=== PATIENT | female | born 1985 | race Two or more races ===

== ENCOUNTER 2020-05-29 06:18 | Day surgery (SDC) | payer OTHER ==
[~2020-05-29 06:18] MED LIST: ADDERALL 20 MG20 MG PO; OMEGA 3 1,0001 EACH PO; VITAMIN D3 PO
[2020-05-29] MEDS ORDERED: COLACE100 MG PO (09:34)
[2020-05-29] MEDS ORDERED: PERCOCET 5-3251 EACH PO (09:34)
== END 2020-05-29 17:20 | disposition home or self-care (01) ==
LOC: CIR.AMB 06:18 → EDBD 11:15 → CIR.AMB 17:20
PROVIDERS: ATTEND Surgery
DX: K60.3 Anal fistula (principal); Z20.822 Contact with and (suspected) exposure to COVID-19

== ENCOUNTER 2020-07-07 19:21 | Emergency (ER) | payer OTHER ==
[~2020-07-07] VITALS: Ht 160 cm; Wt 43.1 kg
[~2020-07-07 19:21] MED LIST changes: +COLACE100 MG PO; +PERCOCET 5-3251 EACH PO
== END 2020-07-07 21:59 | disposition home or self-care (01) ==
LOC: ER 19:21
DX: R53.81 Other malaise (principal); R50.9 Fever, unspecified; Z11.52 Encounter for screening for COVID-19

== ENCOUNTER 2020-08-21 06:00 | Day surgery (SDC) | payer OTHER ==
[2020-08-21] MEDS ORDERED: PERCOCET 5-3251 EACH PO (08:37)
[2020-08-21] MEDS ORDERED: COLACE100 MG PO (08:37)
== END 2020-08-21 18:00 | disposition home or self-care (01) ==
LOC: CIR.AMB 06:00
PROVIDERS: ATTEND Surgery
DX: K60.1 Chronic anal fissure (principal); Z20.822 Contact with and (suspected) exposure to COVID-19

== ENCOUNTER 2020-09-28 08:00 | Outpatient (CLI) | payer OTHER | END 2020-09-28 08:30 | disposition home or self-care (01) | LOC: PPH VACUNA 08:00 | DX: Z23 Encounter for immunization (principal) ==

== ENCOUNTER 2020-10-19 08:00 | Outpatient (CLI) | payer OTHER | END 2020-10-19 08:30 | disposition home or self-care (01) | LOC: PPH VACUNA 08:00 | DX: Z23 Encounter for immunization (principal) ==

== ENCOUNTER 2021-04-26 08:00 | Outpatient (CLI) | payer OTHER | END 2021-04-26 08:30 | disposition home or self-care (01) | LOC: PPH VACUNA 08:00 | PROVIDERS: ATTEND Emergency Medicine Pediatric Emergency Medicine | DX: Z23 Encounter for immunization (principal) ==

== ENCOUNTER 2021-06-10 17:13 | Emergency (ER) | payer OTHER ==
[~2021-06-10] VITALS: Ht 160 cm; Wt 53.1 kg
== END 2021-06-10 20:54 | disposition home or self-care (01) ==
LOC: ER 17:13
DX: B34.9 Viral infection, unspecified (principal); Z20.822 Contact with and (suspected) exposure to COVID-19; Z88.6 Allergy status to analgesic agent

== ENCOUNTER 2022-03-24 15:20 | Outpatient (CLI) | payer OTHER | END 2022-03-24 15:30 | disposition home or self-care (01) | LOC: PPH VACUNA 15:20 | PROVIDERS: ATTEND Emergency Medicine Pediatric Emergency Medicine | DX: Z23 Encounter for immunization (principal) ==

== ENCOUNTER 2023-06-07 20:25 | Emergency (ER) | payer OTHER ==
[~2023-06-07] VITALS: Ht 160 cm; Wt 62.6 kg
[2023-06-07] MEDS ORDERED: SPRINTEC 28 DA1 EACH (20:38)
[2023-06-08] MEDS ORDERED: TETANUS & DIPHTHERIA TOX,ADULT 0.5 ML VIAL IM ONE (01:45)
[2023-06-08] MEDS ORDERED: KETOROLAC TROMETHAMINE 10 MG TABLET PO ONE (01:45)
[2023-06-08] MEDS ORDERED: CEPHALEXIN750 MG PO (02:23)
[2023-06-08] MEDS ORDERED: KETO10TA2 PO (02:23)
== END 2023-06-08 02:30 ==
LOC: ER 20:25
DX: S61.412A Laceration without foreign body of left hand, initial encounter (principal); W26.0XXA Contact with knife, initial encounter; Y93.89 Activity, other specified; Y92.090 Kitchen in other non-institutional residence as the place of occurrence of the external cause; Y99.8 Other external cause status; Z88.6 Allergy status to analgesic agent